=== PATIENT | female | born 2000 | race Asian ===

== ENCOUNTER 2019-01-10 23:42 | Emergency (ER) | payer OTHER ==
--- NOTE | 2019-01-11 02:42 | ED ---
Laceration/Wound HPI - HPI Summary HPI Summary: 18 year old female presents to the ED with a laceration on her left thumb secondary to an accident with a knife while chopping sausages. She reports no pain. Patient refuses pain medication when offered. She recently had a tetanus booster. - History of Current Complaint Stated Complaint: THUMB LAC Time Seen by Provider: 01/11/19 02:28 Hx Obtained From: Patient Mechanism of Injury: Sharp/Blunt Trauma Onset/Duration: Sudden Onset, Still Present Aggravating: Nothing Alleviating: Compression Onset Severity: Mild Current Severity: None Pain Intensity: 0 Pain Scale Used: 0-10 Numeric Associated Signs & Symptoms: Negative - Allergy/Home Medications Allergies/Adverse Reactions: Allergies Allergy/AdvReac Type Severity Reaction Status Date / Time No Known Allergies Allergy Verified 01/10/19 23:47 PMH/Surg Hx/FS Hx/Imm Hx Previously Healthy: Yes Endocrine/Hematology History: Denies: Hx Blood Disorders Infectious Disease History: No Infectious Disease History: Denies: Traveled Outside the [place] in Last 30 Days - Social History Alcohol Use: Rare Substance Use Type: Reports: None Smoking Status (MU): Never Smoked Tobacco Review of Systems - ROS Summary Review of Systems Summary: No home medications. Negative: Fever Positive: Other - laceration on thumb All Other Systems Reviewed And Are Negative: Yes Physical Exam - Summary Physical Exam Summary: General: Well-developed, Well-nourished female. No acute distress. Cardiovascular: Normal sinus rhythm, (-) murmur. Lungs: Clear to auscultation bilaterally (-) wheezes, (-) rales, (-) rhonchi. Abdomen: Soft, non-tender, non-distended, (-) organomegaly, normal bowel sounds. Extremities: No edema. Skin: Warm, dry, (-) rash. 4 mm avulsion of the first digit of the left hand. Neuro: Alert and oriented x3, no focal deficits. Psychiatric: Mood normal, affect normal. Triage Information Reviewed: Yes Vital Signs On Initial Exam: Initial Vitals Temp Pulse Resp BP Pulse Ox 98.0 F 96 16 122/81 98 01/10/19 23:44 01/10/19 23:44 01/10/19 23:44 01/10/19 23:44 01/10/19 23:44 Vital Signs Reviewed: Yes Procedures - Sedation Patient Received Moderate/Deep Sedation with Procedure: No - Laceration/Wound Repair 1 Location: upper extremity Length, Depth and Shape: 4 mm avulsion of the first digit of the left hand. Gel foam was applied. Wound wrapped in sterile gauze. Laceration/Wound Explored: clean Sterile Dressing Applied?: Yes Diagnostics - Vital Signs Vital Signs Temp Pulse Resp BP Pulse Ox 01/10/19 23:44 98.0 F 96 16 122/81 98 - Laboratory Lab Statement: Any lab studies that have been ordered have been reviewed, and results considered in the medical decision making process. Laceration Repair Course/Dx - Course Course Of Treatment: 18-year-old female with avulsion of her right thumb. Tetanus up-to-date. The area was soaked in saline. Covered with Gelfoam and clean sterile gauze. Wound care outlined. Follow-up with PCP. Follow-up sooner for any worsening symptoms. - Clinical Impression Provider Diagnoses: Laceration of left thumb Discharge ED - Sign-Out/Discharge Documenting (check all that apply): Patient Departure - discharge - Discharge Plan Condition: Stable Disposition: HOME Patient Education Materials: Laceration (ED) Referrals: [facility] - Yogesh CHAVEZ [[employer], APPLICATION, OTHER] - Additional Instructions: Follow up with [facility] in 2-3 days. Return to the Emergency Department if you experience new or worsened symptoms. - Billing Disposition and Condition Condition: STABLE Disposition: Home - Attestation Statements Document Initiated by Ruthibe: Yes Documenting Scribe: Duglas Ontiveros Provider For Whom Anae is Documenting (Include Credential): Jessica Santillan MD. Scribe Attestation: Duglas Schroeder, ruthibed for Jessica Santillan MD. on 01/11/19 at 0357. Scribe Documentation Reviewed: Yes Provider Attestation: The documentation as recorded by the scribeDuglas accurately reflects the service I personally performed and the decisions made by me, Jessica Santillan MD. Status of Scribe Document: Viewed
[2019-01-11 03:52] VITALS: BP 103/67
== END 2019-01-11 03:51 | disposition home or self-care (01) ==
LOC: ED 23:42
DX: S61.012A Laceration without foreign body of left thumb without damage to nail, initial encounter (principal); W26.0XXA Contact with knife, initial encounter; Y93.G1 Activity, food preparation and clean up; Y92.9 Unspecified place or not applicable
CPT/HCPCS: 99282